=== PATIENT | female | born 1995 | race African-American/Black ===

== ENCOUNTER 2016-08-28 20:15 | Emergency (ER) | payer BC ==
--- NOTE | 2016-08-28 20:38 | PDOC ---
History of Present Illness - General History Source: Patient Exam Limitations: No Limitations - History of Present Illness Initial Comments: 08/28/16 21:01 Patient is a 21 year old female with significant past medical history of asthma who presents to the ED with right middle finger pain s/p injury at 1800 hour today. Patient reports that her coworker accidentally slammed the door on her right hand. She now reports right middle finger pain with mild wrist pain. She reports difficulty extending her right middle finger due to pain. She denies taking anything to alleviate the pain. She reports history of multiple injuries to the right hand including the right middle finger. Adult PAST MEDICAL HISTORY: asthma PAST SURGICAL HISTORY: no significant history FAMILY HISTORY: no pertinent history SOCIAL HISTORY: Pt lives with family and is employed. MEDICATIONS: reviewed ALLERGIES: As per nursing notes General: No fevers or chills, no weakness, no weight loss HEENT: No change in vision. No sore throat, No ear pain CardioVascular: No chest pain or shortness of breath Respiratory:No cough, or wheezing. Gastrointestinal: no nausea, vomiting, diarrhea or constipation, No rectal bleeding Genitourinary: No dysuria, hematuria, or frequency Musculoskeletal: +right middle finger pain, +right wrist pain. No muscle pain or swelling Neurologic: No headache, vertigo, dizziness or loss of consciousness Psychiatric: nor depression Skin: No rashes or easy bruising Endocrine: no increased thirst or abnormal weight change Allergic: no skin or latex allergy All other systems reviewed and normal General: Well-nourished well-developed individual, no acute distress HEENT: Throat: Normal, tonsils normal, no erythema or exudate Neck: Supple, no meningeal signs, no lymphadenopathy Eyes::Pupils equal reactive and round, extraocular motion intact Chest: Nontender to palpation Cardiac: S1-S2 normal, regular rate and rhythm, no murmurs rubs or gallops Respiratory: Lungs clear to auscultation bilateral Abdomen: Soft, nondistended, normal bowel sounds, nontender to palpation diffusely Extremities: +Right hand mild swelling at base of middle finger with tenderness , no deformity +tenderness in area of the dorsum of hand medially, no swelling or ecchymosis, + decreased ROM of wrist and fingers secondary to pain. Warm, dry, no cyanosis, clubbing, or edema Skin: No rashes Neuro: +Neurovascular intact. Alert and oriented x3, nonfocal exam, grossly intact, normal gait Psych: Normal mood and affect <Mili Colon - Last Filed: 08/28/16 21:01> - General History Source: Patient Exam Limitations: No Limitations - History of Present Illness Initial Comments: 08/28/16 21:59 A portion of this note was documented by scribe services under my direction. I have reviewed the details of the note, within reason, and agree with the documentation. The case summary and management plan written by me. X-rays No acute fractures or dislocations or soft tissue abnormalities Assessment and plan: This is a 21-year-old female who got her finger caught in a door and comes in complaining of pain. Patient given Motrin here in the emergency room x-rays were done which were negative patient discharged home will follow-up with her primary care doctor as needed <Kendy Falcon I - Last Filed: 08/28/16 22:00> - General Chief Complaint: Injury Stated Complaint: RIGHT WRIST, MIDDLE FINGER INJURY Time Seen by Provider: 08/28/16 20:38 Past History <Mili Colon - Last Filed: 08/28/16 21:01> - Past Medical History Asthma: Yes HTN: Yes - Immunization History Immunization Up to Date: Yes - Psycho/Social/Smoking Cessation Hx Anxiety: No Suicidal Ideation: No Smoking History: Never smoked Have you smoked in the past 12 months: No Number of Cigarettes Smoked Daily: 0 Hx Alcohol Use: No Drug/Substance Use Hx: No Substance Use Type: None <Kendy Falcon I - Last Filed: 08/28/16 22:00> - Past Medical History Allergies/Adverse Reactions: Allergies Allergy/AdvReac Type Severity Reaction Status Date / Time sesame seed Allergy Severe Swelling Verified 08/28/16 20:28 Home Medications: Ambulatory Orders Albuterol Sulfate Inhaler - [Ventolin HFA Inhaler -] 1 - 2 inh PO Q4H PRN *Physical Exam - Vital Signs Last Vital Signs Temp Pulse Resp BP Pulse Ox 98.2 F 84 15 120/80 100 08/28/16 20:27 08/28/16 20:27 08/28/16 20:27 08/28/16 20:27 08/28/16 20:27 <Mili Colon - Last Filed: 08/28/16 21:01> ED Treatment Course - ADDITIONAL ORDERS Additional order review: Laboratory Results 08/28/16 20:28 Urine HCG, Qual Negative - Medications Given in the ED: ED Medications Discontinued Medications Generic Name Dose Route Start Last Admin Trade Name Juan M PRN Reason Stop Dose Admin Ibuprofen 600 mg 08/28/16 20:47 08/28/16 20:50 Motrin - PO 08/28/16 20:48 600 mg ONCE ONE Administration <Mili Colon - Last Filed: 08/28/16 21:01> *DC/Admit/Observation/Transfer - Attestations Scribe Attestion: 08/28/16 21:02 Documentation prepared by TIFFANIE Wisdom, acting as medical receptionist for Kendy Falcon MD/. <Mili Colon - Last Filed: 08/28/16 21:01> - Discharge Dispostion Admit: No <Kendy Falcon I - Last Filed: 08/28/16 22:00> Diagnosis at time of Disposition: Hand contusion Qualifiers: Encounter type: initial encounter Laterality: right Qualified Code(s): S60.221A - Contusion of right hand, initial encounter - Discharge Dispostion Disposition: HOME Condition at time of disposition: Good - Patient Instructions Additional Instructions: Tylenol or Motrin as needed for pain. Return to the emergency department immediately with ANY new, persistent or worsening symptoms. Continue any medications as previously prescribed by your physician. You should follow up with your primary doctor as soon as possible regarding today's emergency department visit. . Please make sure your doctor reviews the results of your emergency evaluation. Thank you for coming to the Emergency Department today for your care. It was a pleasure to see you today. Please note that your evaluation is INCOMPLETE until you follow-up with your doctor.
[2016-08-28 20:40] VITALS: BP 120/80; PULSE 84; TEMP 98.2; BMI 28.3
[2016-08-28] MEDS ORDERED: IBUPROFEN 600 MG TABLET (FP) PO ONE ×2 (20:47→20:48)
== END 2016-08-28 22:07 | disposition home or self-care (01) ==
LOC: FER 20:15
DX: S60.221A Contusion of right hand, initial encounter (principal); W20.8XXA Other cause of strike by thrown, projected or falling object, initial encounter; Y93.9 Activity, unspecified; Y92.9 Unspecified place or not applicable; J45.909 Unspecified asthma, uncomplicated
CPT/HCPCS: 73110-TC-RT; 73130-TC-RT; 73140-TC-RT; 84703; 99282-25